=== PATIENT | male | born 1980 | race Caucasian/White ===

== ENCOUNTER 2019-10-12 08:06 | Emergency (ER) | payer BC, SELFPAY ==
[2019-10-12 08:12] VITALS: BP 145/96; PULSE 91; RESP 18; TEMP 36.3; O2SAT 99
--- NOTE | 2019-10-12 08:21 | ED.ABDPAIN ---
HPI - Abdominal Pain General Chief Complaint: Abdominal Pain Stated Complaint: pains chest to abdominal Source: patient and RN notes reviewed Mode of arrival: ambulatory Limitations: no limitations History of Present Illness HPI narrative: 39-year-old male who presents to [facility] care with complaints of 5-day duration of upper epigastric discomfort radiating into the abdomen, no diarrhea, appetite has been decreased with one instance of dry heaving. Patient does state when he takes a deep breath he does have some sharp pains in his left upper chest at times states he thought it was just gas. Patient denies daily alcohol use, denies frequent use of NSAIDs, admits to some spicy foods states grew up in [place]. Patient states he has tried TUMs, gas X, pepto bismol and also laxative with no relief of his symptoms. MD elicited complaint: abdominal pain Pertinent past history: none Onset (ago): day(s) (5) Pain Consistency: constant Location: diffuse, chest, epigastric and LUQ Severity: moderate Pain scale (0-10): 5 Quality: aching, fullness and sharp Radiation: LUQ and epigastric Migration to: epigastric Exacerbating factors: eating Relieving factors: nothing Associated symptoms: denies other symptoms, nausea and vomiting Treatments prior to arrival: other (gas medication and pepto bismol) Related Data Home Medications Medication Instructions Recorded Confirmed fexofenadine-pseudoephedrine ER 1 tablet PO DAILY 09/02/19 09/02/19 180 mg-240 mg tablet,ext.release 24 hr Allergies Allergy/AdvReac Type Severity Reaction Status Date / Time No Known Allergies Allergy Verified 10/12/19 08:30 Review of Systems Review of Systems: Narrative: CONSTITUTIONAL: Denies fever, chills, or sweats. EYES: Denies visual changes, redness, or discharge. ENT: Denies rhinorrhea, congestion, sore throat, or otalgia. CARDIOVASCULAR: Occasional left upper chest pain with deep breaths, no palpitations, or edema. RESPIRATORY: Denies cough or dyspnea. GASTROINTESTINAL: Positive abdominal pain, nausea, vomiting, no diarrhea. GENITOURINARY: Denies dysuria or hematuria. SKIN: Denies rash or itching. MUSCULOSKELETAL: Denies back pain, joint pain, or myalgia. NEUROLOGIC: History of migraine headaches with last incidenceover one week ago, no numbness, or weakness. PSYCHIATRIC: Positive anxiety or depression. 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 There is no relevant family history pertinent to the presenting complaint Exam Narrative: Exam Narrative: GENERAL: Well-appearing, well-nourished, and in no acute distress. HEAD: Normocephalic, atraumatic. EYES: PERRLA and EOMI. ENT: Nares clear, no rhinorrhea or epistaxis. Mucous membranes moist. NECK: Supple.no lymphadenopathy CHEST: Clear to auscultation. No respiratory distress.SAO2 99% on room air HEART: Regular rate and rhythm. No murmur heard. Normal peripheral pulses. ABDOMEN: Soft, tender diffuse abdomen with pain on palpation in left upper abdomen, nondistended, normal active bowel sounds. EXTREMITIES: Normal range of
== END 2019-10-12 08:50 | disposition short-term general hospital (02) ==
PROVIDERS: Emergency Provider Registered Nurse; PCP Family Medicine
DX: R10.13 Epigastric pain (principal); F17.210 Nicotine dependence, cigarettes, uncomplicated
CPT/HCPCS: 99212; G0463

== ENCOUNTER 2019-10-12 09:21 | Emergency (ER) | payer BC, SELFPAY ==
--- NOTE | ~2019-10-12 | CT_ITS ---
EXAMINATION: CTA chest PE abdomen pel DATE: 10/12/2019 13:03 PRODUCT SAFETY ADMINISTRATOR INDICATION: Elevated d-dimer. Pleuritic chest pain. TECHNIQUE: Computed tomographic angiography (CTA) of the chest, abdomen, and pelvis was performed wit h 100 mL Omnipaque-350 intravenous contrast. The dose-length product was 1669.08 mGy-cm. Maximum inte nsity projection 3D-reconstructions of the aorta and other arteries were constructed by the technolog ist on a separate workstation. COMPARISON: Chest x-ray dated 10/12/2019 FINDINGS: CHEST CTA: Heart size is normal. No thoracic lymphadenopathy. Study is technically adequate without evidence for pulmonary embolism. No significant pleural or pericardial effusion. There is lingular atelectasis. N o pneumothorax. 4 mm right lower lobe nodule, image 60. No endobronchial lesions. ABDOMEN AND PELVIS CTA: There are small low-density lesions in the liver and left kidney, most likely benign cysts. Left devora l cyst measuring 2.8 cm. Gallbladder is present. There is focal fatty infiltration of the right hepat ic lobe. The spleen, pancreas, adrenal glands and right kidney are unremarkable. Gallbladder is prese nt. Nonobstructive bowel gas pattern. No significant vascular abnormality. No lymphadenopathy. Normal appendix. Colonic diverticulosis without diverticulitis. No acute osseous abnormality. IMPRESSION: 1. No evidence for pulmonary embolism. 2: 4 mm right lower lobe nodule, likely benign. Follow-up CT chest in 12 months recommended. 3: Lingular atelectasis. Reviewed, dictated and finalized at location A. UCT SAFETY ADMINISTRATOR IMPRESSION: 1. No evidence for pulmonary embolism. 2: 4 mm right lower lobe nodule, likely benign. Follow-up CT chest in 12 month s recommended. 3: Lingular atelectasis.
--- NOTE | ~2019-10-12 | XR_ITS ---
XR chest 2V 10/12/2019 11:10 Indication: Chest pain and tightness. Procedure: 2 view chest Comparison: No prior studies for comparison. Findings: Heart size normal. Right lung clear. There is lingular atelectasis. No pleural effusion, ed mitra, pneumothorax. No acute osseous abnormality. Impression: 1: Lingular atelectasis. Reviewed, dictated and finalized at location A. PREAD CUTTER Impression: 1: Lingular atelectasis.
[2019-10-12 09:32] VITALS: BP 152/99; PULSE 86; RESP 20; TEMP 36.4; O2SAT 100
[2019-10-12 09:36] LABS: Basophils Absolute Auto 0.1 K/mm3 (0.0-0.1); Basophils Percent Auto 0.4 % (0.2-1.2); Eosinophils Absolute Auto 0.2 K/mm3 (0-0.3); Eosinophils Percent Auto 1.8 % (0-4.4); Hematocrit 50.2 % (42.0-52.0); Hemoglobin 17.2 g/dL (14.0-18.0); Immature Granulocyte Absolute 0.04 K/mm3 (0.00-0.031); Immature Granulocyte Percent A 0.3 % (0-0.5); Lymphocytes Absolute Auto 2.43 K/mm3 (0.9-3.2); Lymphocytes Percent Auto 18.7 % (18.3-44.2); Mean Corpuscular HGB Conc 34.3 g/dl (32-36); Mean Corpuscular Hemoglobin 30.8 pg (26-34); Monocytes Absolute Auto 1.1 K/mm3 (0.1-0.6); Monocytes Percent Auto 8.6 % (2.6-8.5); Neutrophils Absolute Auto 9.1 K/mm3 (1.3-6.7); Neutrophils Percent Auto 70.2 % (45.5-73.1); Platelet Count Result 289 k/mm3 (150-375); Red Blood Count 5.58 M/mm3 (4.6-6.20)
[2019-10-12 09:47] LABS: Alanine Aminotransferase 36 U/L (4-50); Albumin Level 4.9 g/dL (3.5-5.1); Alkaline Phosphatase 82 U/L (38-126); Aspartate Amino Transferase 28 U/L (17-59); Bilirubin,Total 0.6 mg/dL (0.2-1.3); Blood Urea Nitrogen 9 mg/dL (9-20); Calcium 9.6 mg/dL (8.4-10.2); Carbon Dioxide 29 mmol/L (22-30); Chloride 104 mmol/L (98-107); Estimated CRCL calculation 113 ml/min; Estimated Glomerular Filt Rate > 60; Glucose 98 mg/dL (75-110); Lipase 47 U/L (23-300); Potassium 3.8 mmol/L (3.4-5.0); Sodium 141 mmol/L (137-145)
[2019-10-12 09:49] LABS: Add Urine Microscopic? NO; Appearance Urine Clear (Clear); Bilirubin Urine Negative (Negative); Blood Urine Negative (Negative); Color Urine Yellow (Yellow); Glucose Urine UA Negative (Negative); Ketones Urine Negative (Negative); Leukocyte Esterase Ur Negative LEU/UL (Negative); Nitrate Urine Negative (Negative); Protein Urine Negative (Negative); Urobilinogen Urine Negative mg/dL (<2.0)
--- NOTE | 2019-10-12 10:55 | ECG_ITS ---
Measurements Intervals [place] Rate: 66 P: 17 TN: 142 QRS: -8 QRSD: 106 T: 18 QT: 373 QTc: 392 Interpretive Statements SINUS RHYTHM DELAYED PRECORDIAL R/S TRANSITION BORDERLINE ECG Electronically Signed On 10-12-2019 12:45:43 [employer]TER by Jensen Ron D.O.
--- NOTE | 2019-10-12 10:56 | ED.ABDPAIN ---
HPI - Abdominal Pain General Chief Complaint: Abdominal Pain Stated Complaint: sent from [facility] for abdominal pain Time Seen by Provider: 10/12/19 10:50 Source: patient Mode of arrival: ambulatory Limitations: no limitations History of Present Illness HPI narrative: This is a 39-year-old male that presents the emergency department for upper abdominal pain x5 days. Reports the pain is constant and worse with movement and deep breaths. Reports the pain radiates into his chest. Reports he did vomit up some mucus. Does not think eating makes it any better or worse. Denies fever, nausea, shortness of breath, diarrhea, dysuria, or hematuria. Related Data Home Medications Medication Instructions Recorded Confirmed fexofenadine-pseudoephedrine ER 1 tablet PO DAILY 09/02/19 10/12/19 180 mg-240 mg tablet,ext.release 24 hr Allergies Allergy/AdvReac Type Severity Reaction Status Date / Time No Known Allergies Allergy Verified 10/12/19 08:30 Review of Systems Review of Systems: Narrative: CONSTITUTIONAL: Denies fever ENT: Denies rhinorrhea, congestion, sore throat CARDIOVASCULAR: Reports chest pain. Denies palpitations, or edema. RESPIRATORY: Denies cough or dyspnea. GASTROINTESTINAL: Report abdominal pain, vomiting. Denies nausea, or diarrhea. GENITOURINARY: Denies dysuria or hematuria. 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 HEAD: Normocephalic, atraumatic. EYES: EOMI. ENT: Nares clear, no rhinorrhea or epistaxis. Mucous membranes moist. Oropharynx without tonsillar hypertrophy exudate or other lesions. Bilateral TMs pearly mancia non-bulging NECK: Supple. No adenopathy or masses. CHEST: Clear to auscultation. No respiratory distress. No wheezes rales or rhonchi. Tender palpation of the left anterior, lower chest wall HEART: Regular rate and rhythm. No murmur heard. Normal peripheral pulses. ABDOMEN: Soft, nondistended, normal active bowel sounds. Mild tenderness to palpation in the epigastrium, without guarding EXTREMITIES: Normal range of motion. No edema. SKIN: Warm, dry, no rash. NEURO: No focal deficits. Alert and oriented x3. PSYCH: Normal mood and affect Course Vital Signs Vital signs: Vital Signs Temperature 97.6 F 10/12/19 09:32 Pulse Rate 86 10/12/19 09:32 Respiratory Rate 20 10/12/19 09:32 Blood Pressure 152/99 H 10/12/19 09:32 Pulse Oximetry 100 10/12/19 09:32 Temperature 97.6 F 10/12/19 09:32 Pulse Rate 86 10/12/19 09:32 Respiratory Rate 20 10/12/19 09:32 Blood Pressure 152/99 H 10/12/19 09:32 Pulse Oximetry 100 10/12/19 09:32 MDM - Abdominal Pain MDM Narrative Medical decision making narrative: Patient presents the emergency department for epigastric pain x5 days. Patient is afebrile and nontoxic-appearing. CBC with mild leukocytosis to 13, otherwise no acute abnormalities. Metabolic panel is without acute changes. Troponin is negative. EKG without concerning changes. Chest x-ray with mild atelectasis. D-dimer is elevated so CTA chest abdomen pelvis was obtained. No evidence for pulmonary embolism. Patient does have a 4 mm right lower lobe nodule that is likely benign and needs follow-up.
[2019-10-12] MEDS: FAMOTIDINE 20 MG/2 ML VIAL IV PUSH (11:12)
[2019-10-12] MEDS: ONDANSETRON INJ 4 MG/2 ML VIAL IV PUSH (11:12)
[2019-10-12] MEDS: SODIUM CHLORIDE 0.9% IV 1,000 ML 999 ML IV CONT (11:12)
[2019-10-12 11:18] LABS: D Dimer 0.94 ug/mL (<0.48)
[2019-10-12 11:22] LABS: Troponin I < 0.012 ng/mL (0.000-0.034)
[2019-10-12 14:15] VITALS: BP 130/80; PULSE 80; RESP 20; TEMP 36.7; O2SAT 99
== END 2019-10-12 14:16 | disposition home or self-care (01) ==
PROVIDERS: Physician Assistant; Emergency Provider Emergency Medicine; PCP Family Medicine
DX: R10.13 Epigastric pain (principal); F41.9 Anxiety disorder, unspecified; F17.210 Nicotine dependence, cigarettes, uncomplicated; R91.1 Solitary pulmonary nodule; R94.31 Abnormal electrocardiogram [ECG] [EKG]; R91.8 Other nonspecific abnormal finding of lung field
CPT/HCPCS: 36415; 71046; 71275; 74177; 80053; 81003; 83690; 84484; 85025; 85380; 93005; 96361; 96365; 96375; 99284; J0131; J2405; J7030; Q9967

== ENCOUNTER 2020-11-16 12:25 | Outpatient (CLI) | payer BC, SELFPAY ==
--- NOTE | ~2020-11-16 | CT_ITS ---
EXAMINATION: CT diagnostic chest w con DATE: 11/16/2020 12:54 INDICATION: Lung nodule TECHNIQUE: Transaxial computed tomographic images of the chest were obtained after the administration of 75 cc of Omnipaque 350 intravenous contrast. The dose-length product (DLP) was 284.05 mGy-cm. Ite rative reconstruction was used. COMPARISON: 10/12/2019 FINDINGS: There is a stable 4 mm nodule of the right lower lobe. No new pulmonary nodules are identif ied. The lungs are free of acute opacities. No pathologically enlarged thoracic lymph nodes are ident ified. The heart size is normal. Cysts of the visualized liver measure up to 1.6 cm in the right hepa tic lobe. Mild thoracic spondylosis. IMPRESSION: 1. Stable 4 mm nodule of the right lower lobe, consistent with old granulomatous disease. Reviewed, dictated and finalized at location B. IMPRESSION: 1. Stable 4 mm nodule of the right lower lobe, consistent with old granulomatou s disease.
== END 2020-11-16 12:26 | disposition home or self-care (01) ==
PROVIDERS: PCP Nurse Practitioner Family; Visit Provider Nurse Practitioner Family
DX: R91.1 Solitary pulmonary nodule (principal)
CPT/HCPCS: 71260; Q9967

== ENCOUNTER 2021-01-27 08:29 | Emergency (ER) | payer BC, SELFPAY ==
[2021-01-27 08:34] VITALS: BP 146/93; PULSE 87; RESP 16; TEMP 36.7; O2SAT 100
--- NOTE | 2021-01-27 09:08 | ED.SKABFB ---
HPI - Skin/Abscess/Foreign Bdy General Chief complaint: Skin/Abscess/Foreign Body Stated complaint: Rash Time Seen by Provider: 01/27/21 09:08 Source: patient History of Present Illness HPI narrative: Patient denies any change in lifestyle. No new exposures. Patient states he broke out in hives last night took a Benadryl with minimal relief. Patient denies any respiratory problems no trouble swallowing and no drooling. MD complaint: rash Related Data Allergies Allergy/AdvReac Type Severity Reaction Status Date / Time No Known Allergies Allergy Verified 10/12/19 08:30 Review of Systems Review of Systems: Narrative: CONSTITUTIONAL: Denies fever, chills, or sweats. EYES: Denies visual changes, redness, or discharge. ENT: Denies rhinorrhea, congestion, sore throat, or otalgia. CARDIOVASCULAR: Denies chest pain, palpitations, or edema. RESPIRATORY: Denies cough or dyspnea. GASTROINTESTINAL: Denies abdominal pain, nausea, vomiting, or diarrhea. GENITOURINARY: Denies dysuria or hematuria. SKIN: Hives to arms abdomen back and legs MUSCULOSKELETAL: Denies back pain, joint pain, or myalgia. NEUROLOGIC: Denies headache, numbness, or weakness. PSYCHIATRIC: Denies anxiety or depression. 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 There is no relevant family history pertinent to the presenting complaint Exam Narrative: Exam Narrative: GENERAL: Well-appearing, well-nourished, and in no acute distress. HEAD: Normocephalic, atraumatic. EYES: PERRLA and EOMI. ENT: Nares clear, no rhinorrhea or epistaxis. Mucous membranes moist. NECK: Supple. CHEST: Clear to auscultation. No respiratory distress. HEART: Regular rate and rhythm. No murmur heard. Normal peripheral pulses. ABDOMEN: Soft, nontender, nondistended, normal active bowel sounds. EXTREMITIES: Normal range of motion. No edema. SKIN: Warm, dry, NON SPECIFIC GENERALIZED RASH. NO FLUID FILLED LESIONS, NO VESICLES, URTICARIA to abdomen back both arms and both legs, NO BURROWS OR RASH IN WEB SPACES TO INDICATE SCABIES, NO CONCERN FOR CELLULITIS OR ABSCESS FORMATION. NO PURPURA OR PETECHIA. DOES NOT INVOLVE THE SOLES OF FEET OR PALMS OF HANDS OR THE MUCOSAL MEMBRANES. NO SLOUGHING OR SWELLING OF TONGUE OR LIPS. NEURO: No focal deficits. Alert and oriented x3. [place] Coma Scale Eye Opening: Spontaneous 4 [place] Coma Scale Motor: Obeys Commands 6 [place] Coma Scale Verbal: Oriented 5 [place] Coma Scale Total 15 Course Vital Signs Vital signs: Vital Signs Temperature 36.7 C 01/27/21 08:34 Pulse Rate 87 01/27/21 08:34 Respiratory Rate 16 01/27/21 08:34 Blood Pressure 146/93 H 01/27/21 08:34 Pulse Oximetry 100 01/27/21 08:34 Temperature 36.7 C 01/27/21 08:34 Pulse Rate 87 01/27/21 08:34 Respiratory Rate 16 01/27/21 08:34 Blood Pressure 146/93 H 01/27/21 08:34 Pulse Oximetry 100 01/27/21 08:34 Please GONZALEZ schedule a followup visit with your personal physician for further evaluation and treatment. Including recheck and discussion of your blood pressure. If your symptoms persist, change or worsen significantly before you can contact your personal p
[2021-01-27] MEDS: methylPREDNISolone SOD SUCC 125 MG VIAL IM (09:13)
== END 2021-01-27 09:29 | disposition home or self-care (01) ==
PROVIDERS: Emergency Provider Nurse Practitioner Family; PCP Nurse Practitioner Family
DX: L50.9 Urticaria, unspecified (principal)
CPT/HCPCS: 96372; 99213; G0463; J2930

== ENCOUNTER 2021-01-28 18:08 | Emergency (ER) | payer BC, SELFPAY ==
[2021-01-28] VITALS (13 sets, daily range): BP systolic 123–133; BP diastolic 72–98; PULSE 86–100; RESP 15–24; TEMP 36.4; O2SAT 92–100
[2021-01-28] MEDS: diphenhydrAMINE HCl INJ 50 MG/ML VIAL IV PUSH (18:45)
[2021-01-28] MEDS: SODIUM CHLORIDE 0.9% IV 1,000 ML 999 ML IV CONT (18:45)
[2021-01-28] MEDS: FAMOTIDINE 20 MG/2 ML VIAL IV PUSH (18:45)
[2021-01-28] MEDS: DEXAMETHASONE SOD PHOS INJ 4 MG/ML VIAL 10 MG IV PUSH (18:45)
[2021-01-28] MEDS: EPINEPHrine HCL INJ 1 MG/ML AMPUL 0.3 MG IM (18:46)
--- NOTE | 2021-01-28 18:46 | ED.GENADULT ---
HPI - General Adult General Chief complaint: Allergic Reaction Stated complaint: hives Time Seen by Provider: 01/28/21 18:24 Source: patient, family and RN notes reviewed Mode of arrival: ambulatory Limitations: no limitations History of Present Illness HPI narrative: Patient is a 40-year-old male who presents to emergency department for evaluation of hives that developed on Monday unsure as to the etiology or cause of them was seen at urgent care yesterday started on a Medrol dose pack and has been taking antihistamine had mild improvement but has had a worsening of the hives that began today patient notes diffuse hives notes some irritation of the upper lip patient denies similar occurrence in the past on arrival does not appear distressed. Denies similar occurrence in the past Related Data Allergies Allergy/AdvReac Type Severity Reaction Status Date / Time No Known Allergies Allergy Verified 01/28/21 18:25 Review of Systems Review of Systems: All systems reviewed & are unremarkable except as noted in HPI and below PMFSH Past Medical History Medical History Anxiety Claustrophobia (~2005) Migraine headache (~1995) Phobia, flying (~2005) Family History Family History Grandparent Family history of cardiovascular disease Social History Social History Years smoked: 25 Smoking status: Never smoker Tobacco type: cigarettes Second hand tobacco smoke exposure: No Alcohol intake: current Substance use: never 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 HEAD: Normocephalic, atraumatic. EYES: PERRLA and EOMI. ENT: Nares clear, no rhinorrhea or epistaxis. Mucous membranes moist. Oropharynx without tonsillar hypertrophy exudate or other lesions. No angioedema in the oropharynx NECK: Supple. No adenopathy or masses. No stridor CHEST: Clear to auscultation. No respiratory distress. No wheezes rales or rhonchi HEART: Regular rate and rhythm. No murmur heard. Normal peripheral pulses. ABDOMEN: Soft, nontender, nondistended EXTREMITIES: Normal range of motion. No edema. SKIN: Warm, dry, patient with a urticaria on the torso and upper extremities with some mild swelling of the upper lip NEURO: No focal deficits. Alert and oriented x3. Cranial nerves II through XII grossly intact PSYCH: Normal mood and affect. Course Course Emergency Course: Patient with urticaria unknown etiology ABCs and vital signs intact and stable medicated in the emergency department with marked improvement observed with no worsening condition felt appropriate for outpatient reevaluation will be sent home with steroids antihistamines EpiPen provided with reasons to return. Patient agrees with this treatment plan feels comfortable with discharge home will follow with primary care Reevaluation(s) Reevaluation #1: Patient's hives are markedly improved he is feeling much better at this time we will continue to monitor the patient Date: 01/28/21 Time: 19:51 Reevaluation #2: Patient continued to rest in the room in no distress with continued improvement of his condition Date: 01/28/21 Time: 21:11 Vital Signs Vital signs: Vital Signs Temperature 97.6 F 01/28/21 18:10 Pulse Rate 91 01/28/21 18:10 Respiratory Rate 16 01/28/21 18:10 Blood Pressure 129/72 01/28/21 18:10 Pulse Oximetry 100 01/28/21 18:10 Temperature 97.6 F 01/28/21 18:10 Pulse Rate 93 01/28/21 20:50 Respiratory Rate 18 01/28/21 20:50 Blood Pressure 133/84 01/28/21 20:16 Pulse Oximetry 94 01/28/21 20:50 Medical Decision Making Vital Signs Vit
--- NOTE | 2021-01-28 19:46 | PC.NURSE ---
ED RENALDO Cabezas in room speaking with pt and family present at bedside. pt appears in no acute distress. Per last shift RN, pt presented with allergic reaction to unknown substance with hives to most of visible skin. no longer apparent. pt denies itching. speech clear; patent airway. will continue to monitor. pt has no known allergies to food or medications.
--- NOTE | 2021-01-28 20:56 | PC.NURSE ---
pt resting on stretcher with steady, even, nonlabored respirations. appears in no acute distress. will continue to monitor.
== END 2021-01-28 21:22 | disposition home or self-care (01) ==
PROVIDERS: Emergency Provider Emergency Medicine; PCP Nurse Practitioner Family
DX: L50.9 Urticaria, unspecified (principal); F17.210 Nicotine dependence, cigarettes, uncomplicated
CPT/HCPCS: 96372; 96374; 96375; 99284; J0171; J1100; J1200; J7030

== ENCOUNTER 2022-04-06 08:16 | Outpatient (CLI) | payer BC, SELFPAY ==
[2022-04-06 18:58] LABS: Basophils Absolute Auto 0.1 K/mm3 (0.0-0.1); Basophils Percent Auto 0.5 % (0.2-1.2); Eosinophils Absolute Auto 0.2 K/mm3 (0-0.3); Eosinophils Percent Auto 2.1 % (0-4.4); Hematocrit 47.7 % (42.0-52.0); Hemoglobin 15.9 g/dL (14.0-18.0); Immature Granulocyte Absolute 0.04 K/mm3 (0.00-0.031); Immature Granulocyte Percent A 0.4 % (0-0.5); Lymphocytes Absolute Auto 2.26 K/mm3 (0.9-3.2); Lymphocytes Percent Auto 19.9 % (18.3-44.2); Mean Corpuscular HGB Conc 33.3 g/dl (32-36); Mean Corpuscular Hemoglobin 30.8 pg (26-34); Mean Corpuscular Volume 92.3 fl (80-100); Mean Platelet Volume 11.8 fl (7.4-10.4); Monocytes Absolute Auto 0.7 K/mm3 (0.1-0.6); Monocytes Percent Auto 6.5 % (2.6-8.5); Neutrophils Percent Auto 70.6 % (45.5-73.1); Platelet Count Result 265 k/mm3 (150-375); Red Blood Count 5.17 M/mm3 (4.6-6.20); Red Cell Distribution Width 13.2 % (11.5-14.5); White Blood Count 11.4 K/mm3 (4.5-10.0)
[2022-04-06 19:54] LABS: Alanine Aminotransferase 27 U/L (6-50); Albumin Level 4.7 g/dL (3.5-5.1); Alkaline Phosphatase 67 U/L (38-126); Anion Gap 4 mmol/L (8-16); Aspartate Amino Transferase 41 U/L (17-59); Bilirubin,Total 0.5 mg/dL (0.2-1.3); Blood Urea Nitrogen 14 mg/dL (9-20); Calcium 9.9 mg/dL (8.4-10.2); Carbon Dioxide 28 mmol/L (22-30); Chloride 103 mmol/L (98-107); Cholesterol 190 mg/dL (0-200); Estimated Glomerular Filt Rate > 60; Glucose 91 mg/dL (65-110); HDL Direct 41 mg/dL; Potassium 5.1 mmol/L (3.4-5.0); Sodium 135 mmol/L (137-145); Triglycerides 149 mg/dL (<150)
[2022-04-06 20:05] LABS: LDL Cholesterol Direct 131 mg/dL
[2022-04-10 11:45] LABS: Testosterone Total 412 ng/dL (250-1100)
== END 2022-04-06 08:17 | disposition home or self-care (01) ==
LOC: ANHGOSHLAB 08:17
PROVIDERS: PCP Family Medicine; Visit Provider Nurse Practitioner
DX: E78.5 Hyperlipidemia, unspecified (principal); E55.9 Vitamin D deficiency, unspecified; E03.9 Hypothyroidism, unspecified; R53.83 Other fatigue
CPT/HCPCS: 36415; 80053; 80061; 82306; 84403; 84443; 85025

== ENCOUNTER → 2023-03-08 09:49 | Outpatient (CLI) | payer BC, SELFPAY ==
--- NOTE | ~2023-03-08 | XR_ITS ---
AP and oblique views of the right ribs Clinical History: Pain Findings: There is suspected minimally displaced fractures at the anterior aspect of the right sixth, seventh, and eighth ribs. Lungs are clear, without focal consolidation or pleural effusion. Cardiome diastinal contour is within normal limits. Soft tissues are unremarkable. Impression: Minimally displaced fractures of the anterior right sixth, seventh, and eighth ribs. Reviewed, dictated and finalized at location . Impression: Minimally displaced fractures of the anterior right sixth, seventh, and eighth ribs.
== END ==
PROVIDERS: PCP Nurse Practitioner Family; Visit Provider Nurse Practitioner Family
DX: S22.41XA Multiple fractures of ribs, right side, initial encounter for closed fracture (principal); X58.XXXA Exposure to other specified factors, initial encounter
CPT/HCPCS: 71100

== ENCOUNTER 2023-04-12 08:20 | Outpatient (CLI) | payer BC, SELFPAY ==
[2023-04-12 17:52] LABS: Basophils Absolute Auto 0.1 K/mm3 (0.0-0.1); Basophils Percent Auto 0.7 % (0.2-1.2); Eosinophils Absolute Auto 0.3 K/mm3 (0-0.3); Eosinophils Percent Auto 3.2 % (0-4.4); Hematocrit 46.5 % (42.0-52.0); Hemoglobin 15.5 g/dL (14.0-18.0); Immature Granulocyte Absolute 0.03 K/mm3 (0.00-0.031); Immature Granulocyte Percent A 0.4 % (0-0.5); Lymphocytes Absolute Auto 2.47 K/mm3 (0.9-3.2); Lymphocytes Percent Auto 29.6 % (18.3-44.2); Mean Corpuscular HGB Conc 33.3 g/dl (32-36); Mean Platelet Volume 11.1 fl (7.4-10.4); Monocytes Absolute Auto 0.6 K/mm3 (0.1-0.6); Monocytes Percent Auto 7.6 % (2.6-8.5); Neutrophils Absolute Auto 4.9 K/mm3 (1.3-6.7); Neutrophils Percent Auto 58.5 % (45.5-73.1); Platelet Count Result 264 k/mm3 (150-375); Red Cell Distribution Width 13.1 % (11.5-14.5); White Blood Count 8.3 K/mm3 (4.5-10.0)
[2023-04-12 19:46] LABS: Alanine Aminotransferase 29 U/L (6-50); Albumin Level 4.3 g/dL (3.5-5.1); Alkaline Phosphatase 64 U/L (38-126); Anion Gap 8 mmol/L (8-16); Aspartate Amino Transferase 62 U/L (17-59); Bilirubin,Total 0.5 mg/dL (0.2-1.3); Blood Urea Nitrogen 15 mg/dL (9-20); Carbon Dioxide 27 mmol/L (22-30); Chloride 105 mmol/L (98-107); Cholesterol 186 mg/dL (0-200); Estimated Glomerular Filt Rate > 60; Glucose 73 mg/dL (65-110); HDL Direct 41 mg/dL; Potassium 4.7 mmol/L (3.4-5.0); Sodium 140 mmol/L (137-145); Triglycerides 84 mg/dL (<150)
[2023-04-12 19:56] LABS: LDL Cholesterol Direct 121 mg/dL
[2023-04-12 20:18] LABS: Prostate Specific Antigen 0.9 ng/mL (< OR = 4.0)
[2023-04-12 20:29] LABS: Vitamin D 25 Hydroxy 54.1 ng/mL
[2023-04-12 21:17] LABS: Hemoglobin A1C 5.2 % (<5.7)
== END 2023-04-12 08:21 | disposition home or self-care (01) ==
LOC: ANHGOSHLAB 08:21
PROVIDERS: PCP Family Medicine; Visit Provider Nurse Practitioner Family
DX: Z00.00 Encounter for general adult medical examination without abnormal findings (principal); Z13.21 Encounter for screening for nutritional disorder; I10 Essential (primary) hypertension; Z13.29 Encounter for screening for other suspected endocrine disorder; Z12.5 Encounter for screening for malignant neoplasm of prostate; Z13.1 Encounter for screening for diabetes mellitus; Z13.220 Encounter for screening for lipoid disorders
CPT/HCPCS: 36415; 80053; 80061; 82306; 83036; 84153; 84443; 85025; G0103

== ENCOUNTER → 2023-05-26 13:27 | Outpatient (CLI) | payer BC, SELFPAY ==
--- NOTE | ~2023-05-26 | XR_ITS ---
XR_RIBSBI_CR DATE: 05/26/2023 13:38 INDICATION: Follow-up of right rib fractures TECHNIQUE: Multiple bilateral rib views COMPARISON: 03/08/2023 right ribs FINDINGS: Slightly displaced anterior right seventh rib fracture. Minimally displaced anterior right eighth rib fracture. No other displaced rib fracture is evident. No pulmonary infiltrate or consolidation, pleural effusion, pulmonary vascular congestion or pneumoth orax is detected. Heart size appears within normal range. IMPRESSION: Slightly diminutive displaced anterior right seventh and eighth rib fractures Reviewed, dictated and finalized at Location A. Reviewed, dictated and finalized at location B.
== END ==
PROVIDERS: PCP Nurse Practitioner Family; Visit Provider Nurse Practitioner Family
DX: S22.31XD Fracture of one rib, right side, subsequent encounter for fracture with routine healing (principal); X58.XXXD Exposure to other specified factors, subsequent encounter
CPT/HCPCS: 71110

== ENCOUNTER 2025-03-31 07:37 | Day surgery (SDC) | payer OTHER, SELFPAY ==
[2024-07-16 12:57] VITALS: BMI 31.1
[2025-03-31 08:12] VITALS: BP 139/107; PULSE 74; RESP 16; TEMP 37.1; O2SAT 99
[2025-03-31] MEDS: LACTATED RINGERS 1,000 ML 150 ML IV CONT (08:15)
--- NOTE | 2025-03-31 09:01 | P.HP_ITS ---
H&P: HPI History of Present Illness Date/Time: 03/31/25 09:01 Chief Complaint: Screening colonoscopy Narrative: This is the patient's first colonoscopy. There are no GI symptoms and there is no family history of colorectal cancer. Review of Systems Review of Systems: All systems reviewed & are unremarkable except as noted in HPI and below PMFSH Past Medical History Medical History (Updated 03/31/25 @ 09:02 by Brandon Kennedy MD) Ribs, multiple fractures (~03/2023) Anxiety Lung nodule < 6cm on CT 11/2020: Stable 4 mm nodule of the right lower lobe, consistent with old granulomatous disease. Claustrophobia (~2005) Phobia, flying (~2005) Migraine headache (~1995) Family History Family History Grandparent Family history of cardiovascular disease Social History Social History Smoking packs per day: 0.5 Smoking cigarettes per day: 10.0 Years smoked: 25 Smoking pack-years: 12.50 Smoking status: Current every day smoker Tobacco type: cigarettes Second hand tobacco smoke exposure: Yes Alcohol intake: current Alcohol use details: Pt states that he rarely drinks socially Substance use: current Substance use type: marijuana Other substance usage details: rarely uses thc gummies Lack of Transportation: No Lack of Food: Never True Current Housing: I Have Housing Concerned About Future Housing: No Difficulty Paying Gas/Electric Bills: No Difficulty Paying for Meds: No Currently Unemployed: No Education: Associate Degree Difficulty w/ Childcare or Family Care: No Living arrangements: with family Additional living arrangements comments: Occupation/Education: occupation 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 Gender identity (if verbalized by the patient): Male Spiritual care concerns: No Agree to blood products: Yes Meds Home Medications and Allergies Home Medications ?Medication ?Instructions ?Recorded ?Confirmed ?Type fexofenadine-pseudoephedrine ER 1 tablet PO DAILY PRN allergy 07/16/24 03/31/25 History 180 mg-240 mg tablet,ext.release symptoms 24 hr (Leatha-D 24 Hour) fluticasone propionate 50 2 spray intranasal PRN 07/1603/31/25 History mcg/actuation nasal spray,suspension (Flonase Allergy Relief) alprazolam 0.5 mg tablet 0.5 mg PO BID PRN anxiety #6 0 tabs 09/16/24 03/31/25 Rx epinephrine 0.3 mg/0.3 mL 0.3 ml IM ONCE PRN anaphylax is 03/12/25 03/31/25 History injection, auto-injector Allergies Allergy/AdvReac Type Severity Reaction Status Date / Time No Known Allergies Allergy Verified 03/31/25 08:11 Vital Signs Vital Signs - 24 hr 03/31/25 08:12 Temperature 98.7 F Pulse Rate 74 Respiratory Rate 16 Blood Pressure 139/107 H Pulse Oximetry 99 Oxygen Delivery Room Air Exam Const: General: cooperative and healthy appearing Resp: Effort & Inspection: normal respiratory effort and able to speak in complete sentences Auscultation: clear to auscultation bilaterally Cardio: Rate: regular rate Rhythm: regular rhythm GI: Inspection: normal to inspection GI Palp: No No hepatosplenomegaly present Auscultation: normal bowel sounds Rectal Exam: deferred Skin: General skin exam: normal color Psych: Appearance: grossly normal Mental Status: mental status grossly normal Assessment and Plan Assessment and plan (1) Encounter for screening colonoscopy: Code(s): Z12.11 - Encounter for screening for malignant neoplasm of colon Status: Acute Assessment and Plan: The patient is deemed a good candidate for the procedure. Consent signed. Will proceed.
--- NOTE | 2025-03-31 09:17 | WPDANESEPPF ---
Anes - Initial Pre Proc Eval Procedure: Operation Date: 03/31/25 09:30 Proposed Procedures p Screening Colonoscopy - Brandon Kennedy MD Date/Time: 03/31/25 09:17 Surgeon: Brandon Kennedy MD Pre Op Diagnosis: Neoplasm Screening Patient Data Age: 45 Gender: M Height: 1.8 m Weight: 101.8 kg Last Vital Signs Temp 98.7 F 03/31/25 08:12 Pulse 74 03/31/25 08:12 Resp 16 03/31/25 08:12 BP 139/107 H 03/31/25 08:12 Pulse Ox 99 03/31/25 08:12 O2 Del Method Room Air 03/31/25 08:12 Allergies Allergy/AdvReac Type Severity Reaction Status Date / Time No Known Allergies Allergy Verified 03/31/25 08:11 Home Medications ?Medication ?Instructions ?Recorded ?Confirmed ?Type fexofenadine-pseudoephedrine ER 1 tablet PO DAILY PRN allergy 07/16/24 03/31/25 History 180 mg-240 mg tablet,ext.release symptoms 24 hr (Leatha-D 24 Hour) fluticasone propionate 50 2 spray intranasal PRN 07/16/24 03/31/25 History mcg/actuation nasal spray,suspension (Flonase Allergy Relief) alprazolam 0.5 mg tablet 0.5 mg PO BID PRN anxiety #60 tabs 09/16/24 03/31/25 Rx epinephrine 0.3 mg/0.3 mL 0.3 ml IM ONCE PRN anaphylaxis 03/12/25 03/31/25 History injection, auto-injector Patient hx anesthesia problems: none Family hx anesthesia problems: none Results Review: All pre-operative results and documents have been reviewed as part of the pre-operative evaluation. [facility] Past Medical History Medical History (Updated 03/31/25 @ 09:02 by Brandon Kennedy MD) Ribs, multiple fractures (~03/2023) Anxiety Lung nodule < 6cm on CT 11/2020: Stable 4 mm nodule of the right lower lobe, consistent with old granulomatous disease. Claustrophobia (~2005) Phobia, flying (~2005) Migraine headache (~1995) Family History Family History Grandparent Family history of cardiovascular disease Social History Social History Smoking packs per day: 0.5 Smoking cigarettes per day: 10.0 Years smoked: 25 Smoking pack-years: 12.50 Smoking status: Current every day smoker Tobacco type: cigarettes Second hand tobacco smoke exposure: Yes Alcohol intake: current Alcohol use details: Pt states that he rarely drinks socially Substance use: current Substance use type: marijuana Other substance usage details: rarely uses thc gummies Lack of Transportation: No Lack of Food: Never True Current Housing: I Have Housing Concerned About Future Housing: No Difficulty Paying Gas/Electric Bills: No Difficulty Paying for Meds: No Currently Unemployed: No Education: Associate Degree Difficulty w/ Childcare or Family Care: No Living arrangements: with family Additional living arrangements comments: Occupation/Education: occupation 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 Informed Consent: The patient's anesthetic plan and its attendant risks and benefits were discussed with the patient/family/POA. Questions were solicited and answers provided to the satisfaction of the patient/family/POA.
--- NOTE | 2025-03-31 09:52 | WPDANESPN ---
Anes - Prog Note Post-Op Date/Time: 03/31/25 09:52 Vital Signs: Last Vital Signs Temp 98.7 F 03/31/25 08:12 Pulse 74 03/31/25 08:12 Resp 16 03/31/25 08:12 BP 139/107 H 03/31/25 08:12 Pulse Ox 99 03/31/25 08:12 O2 Del Method Room Air 03/31/25 08:12 Pain Score (VAS): no Patient Feedback: Patient satisfied with anesthetic care.
[2025-03-31 10:02] VITALS: BP 118/85; PULSE 68; RESP 15; O2SAT 98
[2025-03-31 10:12] VITALS: BP 120/92; PULSE 70; RESP 16; O2SAT 99
[2025-03-31 10:22] VITALS: BP 124/107; PULSE 63; RESP 16; O2SAT 99
== END 2025-03-31 10:27 | disposition home or self-care (01) ==
PROVIDERS: PCP Family Medicine; Referring Provider Nurse Practitioner Family; Visit Provider Internal Medicine Gastroenterology
PROC: 0DJD8ZZ Inspection of Lower Intestinal Tract, Via Natural or Artificial Opening Endoscopic (ICD-10-PCS; CPT 45378; principal; 2025-03-31 09:30)
DX: Z12.11 Encounter for screening for malignant neoplasm of colon (principal); D12.3 Benign neoplasm of transverse colon
CPT/HCPCS: 45385

== ENCOUNTER 2025-03-31 09:52 | Outpatient (NON) | payer OTHER, SELFPAY ==
--- NOTE | 2025-03-31 | S_PTH ---
PATIENT: Chris Hawk LOC: [facility] U#:[id number] AGE/SX: 45/M ROOM: RE03/31/[address]: Brandon Kennedy MD : 1980 BED: DIS: 03/31/2025 SPEC #: [id number] RECD: 04/01/25 10:10 STATUS: OLEKSANDR RETere #: [id number] LAKEISHA: 03/31/25 00:[address]: Brandon Kennedy DEPT: [facility] Surgical RECD BY: Coty Brandon ENTERED: 04/01/25 10:11 SP TYPE: Surgical OTHR DR: Heriberto Lam MD Tissues: A - Colon Polypectomy Procedures: Hematoxylin and Eosin Stain Gross and Microscopic Level 4
== END 2025-03-31 09:53 | disposition home or self-care (01) ==
LOC: ANHLAB 04-01 09:54
PROVIDERS: PCP Family Medicine; Visit Provider Internal Medicine Gastroenterology
DX: Z12.11 Encounter for screening for malignant neoplasm of colon (principal)
CPT/HCPCS: 88305

== ENCOUNTER 2025-07-21 09:46 | Outpatient (CLI) | payer OTHER, SELFPAY ==
[2025-07-21 11:22] LABS: Alanine Aminotransferase 45 U/L (6-50); Albumin Level 4.7 g/dL (3.5-5.1); Alkaline Phosphatase 74 U/L (38-126); Anion Gap 5 mmol/L (4-12); Aspartate Amino Transferase 42 U/L (17-59); Bilirubin,Total 0.4 mg/dL (0.2-1.3); Blood Urea Nitrogen 18 mg/dL (9-20); Calcium 9.5 mg/dL (8.4-10.2); Carbon Dioxide 24 mmol/L (22-30); Chloride 111 mmol/L (98-107); Cholesterol 187 mg/dL (0-200); Estimated Glomerular Filt Rate > 60; Glucose 94 mg/dL (65-110); HDL Direct 44 mg/dL; Hematocrit 47.7 % (42.0-52.0); Hemoglobin 16.2 g/dL (14.0-18.0); Immature Granulocyte Percent A 0.3 % (0-0.5); Lymphocytes Absolute Auto 2.31 K/mm3 (0.9-3.2); Mean Corpuscular HGB Conc 34.0 g/dl (32-36); Mean Corpuscular Hemoglobin 31.0 pg (26-34); Mean Corpuscular Volume 91.4 fl (80-100); Nucleated Red Blood Cells Absolute Auto 0.000 K/mm3 (0.0-0.012); Nucleated Red Blood Cells Perc 0.0 % (0.0-0.2); Platelet Count Result 297 k/mm3 (150-375); Potassium 4.2 mmol/L (3.4-5.0); Red Blood Count 5.22 M/mm3 (4.6-6.20); Sodium 140 mmol/L (137-145); Total Protein 7.9 g/dL (6.3-8.2); Triglycerides 141 mg/dL (<150); White Blood Count 8.8 K/mm3 (4.5-10.0)
[2025-07-21 11:57] LABS: Thyroid Stimulating Hormone Reflex 0.905 uIU/mL (0.465-4.68)
[2025-07-21 12:00] LABS: Prostate Specific Antigen 1.3 ng/mL (< OR = 4.0)
[2025-07-21 12:12] LABS: Hemoglobin A1C 5.3 % (<5.7)
[2025-07-21 12:19] LABS: Vitamin B12 344.0 pg/mL (239-931)
== END 2025-07-21 09:47 | disposition home or self-care (01) ==
PROVIDERS: PCP Family Medicine; Visit Provider Family Medicine
DX: R73.9 Hyperglycemia, unspecified (principal); I10 Essential (primary) hypertension; E55.9 Vitamin D deficiency, unspecified; Z00.00 Encounter for general adult medical examination without abnormal findings; Z12.5 Encounter for screening for malignant neoplasm of prostate; E78.5 Hyperlipidemia, unspecified; E53.8 Deficiency of other specified B group vitamins; R53.83 Other fatigue
CPT/HCPCS: 36415; 80053; 80061; 82306; 82607; 83036; 84153; 84443; 85025; G0103